=== PATIENT | female | born 1965 | race Caucasian/White ===

== ENCOUNTER → 2021-10-03 | Outpatient (CLI) | payer OTHER ==
--- NOTE | 2021-10-03 11:30 | KCIC ---
Exam Date: 10/03/2021 8:45 AM MRI LEFT LOWER EXTREMITY JOINT WITHOUT Indication: Reason: LEFT KNEE PAIN / Spl. Instructions: / History: Left knee pain around a posterior mass that is 20 yrs old.. TECHNIQUE: Routine multiplanar MR imaging of the knee was performed without contrast. FINDINGS: There is a 7.4 x 4.0 x 7.8 cm mass posterior to the knee within the subcutaneous fat. This demonstra li predominantly fat signal with septations and heterogeneity, as well as areas of heterogeneous inc reased T2 signal. This does not extend beyond the fascial plane dividing the subcutaneous fat from t he underlying musculature. There is no evidence of muscular or osseous involvement. The medial and lateral menisci are intact and within normal limits for age. The anterior cruciate ligament, posterior cruciate ligament, medial collateral ligament, and lateral collateral ligament complex are intact. Patellofemoral extensor mechanism and popliteus tendon are w ithin normal limits. There is mild chondral thinning in the medial compartment with small partial thickness chondral defec ts. Small partial thickness chondral defects are also seen in the patellofemoral and lateral compart ments. No full-thickness chondral loss is seen. Bone marrow demonstrates benign signal on all sequences. No acute fracture is seen. Physiologic joint fluid is present. There is no popliteal cyst. IMPRESSION: Large fatty mass in the posterior subcutaneous fat with heterogeneity and septations. Given the lack of invasion or extension beyond the fascial plane, this favors a benign etiology, such as a lipoma. However, given the heterogeneity and septations within the mass, more aggressive lesions, such as li posarcoma, are not excluded. Correlate clinically and consider further evaluation with tissue sampli ng or excisional biopsy. Intact menisci and ligaments. No acute fracture. Mild degenerative changes noted with partial thick ness chondral loss. Electronically signed by: Timbo Patrick MD (10/03/2021 11:28 AM) [id number]
== END ==
LOC: KCIC MRI 08:28
PROVIDERS: ATTEND Orthopaedic Surgery
DX: R22.42 Localized swelling, mass and lump, left lower limb (principal); M95.8 Other specified acquired deformities of musculoskeletal system; M25.562 Pain in left knee
CPT/HCPCS: 73721

== ENCOUNTER → 2021-11-16 | Outpatient (CLI) | payer OTHER ==
[~2021-11-16] MED LIST: ANALAPRIL PO; ATOR20TA58 PO; GLIM2TAB7 PO; HYDR-2761 PO; HYDR12.58 PO; METF500T16 PO
== END ==
LOC: LAB 11:20
PROVIDERS: ATTEND Orthopaedic Surgery
DX: Z01.812 Encounter for preprocedural laboratory examination (principal); Z20.822 Contact with and (suspected) exposure to COVID-19; M67.40 Ganglion, unspecified site
CPT/HCPCS: U0003; U0005

== ENCOUNTER 2021-11-20 06:24 | Day surgery (SDC) | payer OTHER ==
[~2021-11-20] VITALS: Ht 157.5 cm; Wt 89.8 kg
[~2021-11-20 06:24] MED LIST changes: -ANALAPRIL PO; -ATOR20TA58 PO; -GLIM2TAB7 PO; -HYDR-2761 PO; -HYDR12.58 PO; +HYDROmorphone 2 MG/ML INJ. IVP PRN; +IV RINGERS,LACTATED 1000ML 1,000 ML IV SCH; -METF500T16 PO; +MORPHINE SULFATE 2 MG/ML INJ. IVP PRN; +PROCHLORPERAZINE 10 MG/2 ML VIAL. IVP PRN; +fentaNYL PF VIAL 100 MCG/2 ML VIAL IVP PRN
[2021-11-20] MEDS ORDERED: BUPIVACAINE-EPI 0.25%-1:200000 MPF 30 ML VIAL. ONE (07:04)
[2021-11-20] MEDS ORDERED: PROPOFOL 10 MG/ML (20ML) VIAL. IV ONE (07:16)
[2021-11-20] MEDS ORDERED: LIDOCAINE 2% PF 5 ML VIAL. ONE (07:16)
[2021-11-20 07:17] VITALS: BP 131/73
[2021-11-20] MEDS ORDERED: ROCURONIUM 50 MG/5 ML VIAL. ONE (07:17)
[2021-11-20] MEDS ORDERED: SUCCINYLCHOLINE 200 MG/10 ML VIAL. ONE (07:17)
[2021-11-20] MEDS ORDERED: fentaNYL PF VIAL 250 MCG/5 ML VIAL ONE (07:18)
[2021-11-20] MEDS ORDERED: ATOR20TA58 PO (07:30)
[2021-11-20] MEDS ORDERED: METF500T16 PO (07:30)
[2021-11-20] MEDS ORDERED: HYDR12.58 PO (07:30)
[2021-11-20] MEDS ORDERED: MIDAZOLAM HCL/PF 2 MG/2 ML VIAL. ONE (07:30)
[2021-11-20] MEDS ORDERED: GLIM2TAB7 PO (07:30)
[2021-11-20] MEDS ORDERED: ANALAPRIL PO (07:30)
[2021-11-20] MEDS ORDERED: FAMOTIDINE 20 MG/2 ML VIAL ONE (07:32)
[2021-11-20] MEDS ORDERED: DEXAMETHASONE SOD PHOS 4 MG/ML VIAL ONE (07:35)
[2021-11-20] MEDS ORDERED: 0.9 % SODIUM CHLORIDE 20 ML VIAL. IJ ONE (07:36)
[2021-11-20] MEDS ORDERED: GLYCOPYRROLATE 1 MG/5 ML VIAL. ONE (07:37)
[2021-11-20] MEDS ORDERED: NEOSTIGMINE METHYLSULFATE 5 MG/5 ML SYRINGE. ONE (07:38)
[2021-11-20] MEDS ORDERED: ONDANSETRON PF 4 MG/2 ML VIAL. ONE (07:39)
[2021-11-20] MEDS: INSULIN LISPRO 100 UNIT/ML 3ML VIAL for OP,RR ONLY. SQ PRN ×2 (07:50→09:07)
[2021-11-20] MEDS ORDERED: HYDR-2761 PO (07:55)
--- NOTE | 2021-11-20 07:58 | DISCH ---
DISCHARGE INSTRUCTIONS Condition on Discharge Condition on Discharge: Stable Activity After Discharge Activity Instructions for Disc: Avoid exertion Bathing Instructions: Shower-keep dressing dry Driving Instructions after Dis: Do not drive today Weight Bearing Status after Di: Full weight bearing Wound Incision Care Wound/Incision Care: Ice to area for comfort, Keep wound elevated, Do not change dressing Other wound/incision instructi: Follow-up in 7 to 10 days Follow-Up Follow up with: 7 to 10 days ISAIAH ROONEY Jr. DO Nov 20, 2021 07:58
--- NOTE | 2021-11-20 08:31 | PDOC4 ---
OPERATIVE NOTE Date: Date: Nov 20, 2021 Pre-Op Diagnosis: Mass left knee posterior Post-Op Diagnosis: Same Procedure Performed: Excision mass left knee posterior Surgeon: Dejan Anesthesia Type: General Blood Loss: 5 cc Specimans Obtained: Mass left knee Findings: See dictation Complications: None ISAIAH ROONEY Jr., DO Nov 20, 2021 08:31
--- NOTE | 2021-11-20 08:47 | OP ---
DATE OF SURGERY: 11/20/2021 PREOPERATIVE DIAGNOSIS: Mass, left knee popliteal fossa. POSTOPERATIVE DIAGNOSIS: Mass, left knee popliteal fossa. PROCEDURE: Excision of mass, left knee. SURGEON: Glen Wylie Jr, DO BALANCE CLERK: Candido Contreras. ANESTHESIA: General. COMPLICATIONS: None. ESTIMATED BLOOD LOSS: 5 mL. DESCRIPTION OF PROCEDURE: The patient was taken to the operative suite, given a general anesthetic, placed in a prone position. The left lower extremity was then prepped and draped in a sterile fashion. Incision was made through skin and subcutaneous tissues directly along the area of the mass. This was dissected off the fascia of the underlying popliteal region. This did not involve any of the neurovascular structures below. This was then removed in its entirety. No other masses were noted. This was thoroughly irrigated. The skin was reapproximated in an interrupted fashion using 3-0 nylon. Sterile dressing was applied. Tourniquet was deflated with good return of pulses and capillary refill. The patient was then taken from the operative bed to the postoperative bed, taken to the PACU in stable condition. AIRAM DR: Jurgen TID: [id number]
--- NOTE | 2021-11-20 08:51 | HP ---
DATE OF SERVICE: 11/20/2021 ADMIT DATE: 11/20/2021 PREOPERATIVE DIAGNOSIS: Mass, left knee, posterior. HISTORY OF PRESENT ILLNESS: The patient is a 56-year-old female who is here today for removal of a left knee mass, which was noted on MRI. This has been present over the last few years, increasing in size very slowly, this is not painful, but due to the size was an issue as far as overall, mass effect causing decreased range of motion. No other issues, problems, or concerns today. PAST MEDICAL HISTORY: Remarkable for asthma, anemia, arthritis, multiple fractures, cataracts, diabetes, heart palpitations, hypertension. PAST SURGICAL HISTORY: Right arm in , removal of plate and screws in the lower leg in 1991, upper arm surgeries x2 in , CHF surgery December of 2017, bilateral cataract. FAMILY HISTORY: Remarkable for cancer as well as heart disease, high blood pressure and diabetes. SOCIAL HISTORY: Unremarkable for any alcohol or tobacco use. MEDICATIONS: Numerous and are listed noted to be aspirin and allergy medicine, enalapril, hydrochlorothiazide, metformin, azithromycin. MEDICATION ALLERGIES: NONE. PHYSICAL EXAMINATION: She is 62 inches tall, 197 pounds. She has mass of the posterior aspect of the knee. This is nonpulsatile. This is nonpainful with palpation. This is freely mobile. She has range of motion of full extension of the knee up to 95 degrees of flexion, limited due to the mass. The knee itself has no pain to palpation over the medial or lateral joint lines. No instability. Range of motion was noted as previous without any pain. Proper tracking in patellofemoral joint is noted. No atrophy of musculature, left versus right. Distal neurovascular status is fully intact. IMPRESSION: Mass, left knee. PLAN: At this time, she is well aware of the risks, complications as well as benefits and expectations. Surgery for removal of the mass, we will proceed. JIN DR: Jurgen TID: [id number]
[2021-11-20 09:15] VITALS: BP 122/59
[2021-11-20] MEDS ORDERED: HYDROcodone/APAP 5/325MG 1 TAB TABLET PO ONE (09:30)
[2021-11-20] MEDS ORDERED: INSULIN LISPRO 100 UNIT/ML 3ML VIAL for OP,RR ONLY. SQ ONE ×2 (09:30)
--- NOTE | 2021-12-05 17:09 | PATHOLOGY ---
[facility] Accession Number: [id number] . 01 Material submitted: . knee - LT KNEE MASS. Modifiers: left . 01 Clinical history: . GANGLION CYST LEFT KNEE LEFT OPEN MASS EXCISION . 02 Diagnosis: Fibroadipose tissue, left knee mass excision: - Lipoma/Fibrolipoma. . (JPM:pit/mml; 11/21/2021) . . Special studies report received from [facility], [address] [place] [address], [address], [place], [address], on case [id number], labeled with their number [id number], dated 12/05/2021. . Immunohistochemical Analysis . Body Site: Left knee mass. Specimen received: 1 paraffin block labeled: [id number]; 2 stained slides labeled: [id number]. . Clinical History Ganglion cyst left knee. . Microscopic Description Comment: Immunostaining interpretation should be considered in the context of other immunostains, morphologic features and clinical information. Correlate with MDM2 by FISH if suspicion/clinically indicated. . Specimen [id number] . ANTIBODY/PROBE RESULTS MDM2 Negative in section examined - see comment . at [employer], Espinela. James Hansen M.D. Pathologist . Tests MDM2 . Disclaimer(s): Any image(s) that accompany this report is/are a car sales representative image(s) only and should not be used to render a diagnosis. . This interpretation is contingent on the specimen and the clinical information received. . For any special tests/stains performed, known positive cells or tissues are tested with each marker and examined to ensure positivity. Positive and negative internal controls, if present, react appropriately. . The immunohistochemistry tests performed at [facility]. were validated on tissue fixed in 10% neutral buffered formalin. The performance characteristics of the tests performed on tissue processed in other fixatives is not known. . Performing Labs: This Test was performed at [facility]. at [address] [place] [address], [facility] [address], [place], [address]. [facility] is a business unit of [employer] a wholly-owned subsidiary of [employer]. . A complete copy of the report is on file. . Professional and Technical services performed by [employer]. at [address], [place] [address], [place] [address]. . (JPM:amj 12/05/2021) . QTP 12/05/2021 1703 Local . 02 Comment: Sections of the left knee mass reveal a well-circumscribed soft tissue tumor. The tumor is predominantly composed of adipocytes, which do show some variation in size. The tumor also has focally prominent intimately admixed areas of collagenous stroma containing a relatively sparsely cellular spindle cell proliferation. The spindle cells generally have elongate uniform bland-appearing nuclei. An occasional stromal cell has an enlarged mildly atypical nucleus. Definitive lipoblasts are not identified. . A properly-controlled immunoperoxidase stain for MDM2 is obtained on A5 and yields the following results: . MDM2 (A5): Negative for MDM2 expression . 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 . The case also examined by Dr. Jocelyne Villalobos, who concurs with the diagnosis. . Special stain performed: Immunoperoxidase stain for MDM2 . (JPM:mmmarquez; 12/05/2021) . 02 Electronically signed: . Rios Rodriguez MD, Pathologist NPI- [id number] . 01 Gross description: . The specimen is received in formalin, labeled "Elif, [place], Left knee mass" and consists of a fatty irregular intact rubbery tissue (7.0 x 5.7 x 4.9 cm). The surface is inked black. Sectioning reveals winston-yellow lobular, fatty firm and rubbery, dusky cut surfaces. No cyst is identified. Photographs are taken. Fish Smoker sections are submitted in A1-A6.(MARY'S IGLOO; 11/20/2021) DKA/DCH 11/20/2021 1733 Local . 02 Pathologist provided ICD-10: D17.24 . 02 CPT . 235424, [id number] Specimen Comment: A courtesy copy of this report has been sent to [phone], [phone] Specimen Comment: 2422, Specimen Comment: Report sent to , DR MONSALVE / DR SELLERS Specimen Comment: A duplicate report has been generated due to demographic updates. Performed at: 01 [facility] [address] [facility] [address], [place] [id number] MD Jose Juan Del Valle MD Phone: [phone] Performed at: 02 [facility] [address] [place], [place] [id number] MD Rios Rodriguez MD Phone: [phone]
== END 2021-11-20 09:50 | disposition home or self-care (01) ==
LOC: SURG 06:24
PROVIDERS: ATTEND Orthopaedic Surgery
DX: M71.22 Synovial cyst of popliteal space [Baker], left knee (principal); D17.24 Benign lipomatous neoplasm of skin and subcutaneous tissue of left leg; J45.909 Unspecified asthma, uncomplicated; M19.90 Unspecified osteoarthritis, unspecified site; E11.9 Type 2 diabetes mellitus without complications; I11.0 Hypertensive heart disease with heart failure; I50.9 Heart failure, unspecified; E78.00 Pure hypercholesterolemia, unspecified; Z79.84 Long term (current) use of oral hypoglycemic drugs; Z79.899 Other long term (current) drug therapy; Z98.890 Other specified postprocedural states
CPT/HCPCS: 27347; 82962; A4364; A4930; A6402; A6450; J0330; J0690; J1100; J1815; J2250; J2405; J2704; J3010; J3490; 88304; 88342; A4223; A4452; J2710